=== PATIENT | male | born 1935 | race Caucasian/White ===

== ENCOUNTER 2017-07-21 14:40 | Outpatient (CLI) | payer MEDICARE ==
--- NOTE | 2017-07-21 15:23 | RAD ---
PA AND LATERAL CHEST: Date: 07/21/17 INDICATION: History of wheezing. COMPARISON: Prior exam dated 01/01/15. FINDINGS: Chronic lung changes and mild cardiomegaly are stable. 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 Aortic valvular p rosthesis is unchanged in position. No acute air space opacity, pleural effusion, or pneumothorax is evident. No acute osseous abnormality is noted. Multilevel spondylosis is similar appearing. Mild wed ge compression abnormality of mid thoracic spine is stable. IMPRESSION: No acute abnormality. Stable exam as above. POS: ADALID
[2017-07-21 15:27] LABS: Hemoglobin 14.3 g/dL (14.0-18.0); Mean Corpuscular HGB CONC 31.5 g/dL (32.0-36.0); Mean Corpuscular Hemoglobin 28.6 pg (27.0-31.0); Mean Corpuscular Volume 90.6 fl (80.0-94.0); Platelet Count 274 thou/uL (130-400); RBC Distribution Width 12.9 % (11.5-14.5); White Blood Cell (WBC) Count 10.5 thou/uL (4.8-10.8)
[2017-07-21 15:36] LABS: ALT (SGPT) 32 U/L (8-55); AST (SGOT) 23 U/L (5-34); Albumin 3.7 g/dL (3.4-4.8); Alkaline Phosphatase 170 U/L (40-150); Anion Gap 13 mmol/L (10-20); BUN (Urea Nitrogen) 18 mg/dL (8.4-25.7); Bilirubin, Total 0.8 mg/dL (0.2-1.2); Calc. Creatinine Clearance 0 mL/min (70-130); Calcium 9.4 mg/dL (7.8-10.44); Carbon Dioxide 29 mmol/L (23-31); Chloride 102 mmol/L (98-107); Estimated GFR-MDRD 65; Globulin 3.2 g/dL (2.4-3.5); Glucose 132 mg/dL (83-110); Potassium 4.5 mmol/L (3.5-5.1); Protein, Total 6.9 g/dL (5.8-8.1); Sodium 139 mmol/L (136-145)
[2017-07-21 15:43] LABS: Bilirubin Negative (Negative); Blood, Urine Trace (Negative); Clarity Clear (Clear); Glucose, Urine (Dipstick) Negative (Negative); Leukocyte Negative (Negative); Nitrite Negative (Negative); Protein, Urine (Dipstick) Negative (Neg-Trace); Specific Gravity, Urine 1.025 (1.005-1.030); Urobilinogen 0.2 mg/dL (0.2-1.0); pH, Urine 5.5 (5.0-9.0)
[2017-07-21 16:02] LABS: Band 1 % (5-11); Eosinophils 4 % (0-10); Lymphocytes 24 % (21-51); MDiff Complete? YES; Monocytes 6 % (0-10); Neutrophil 65 % (42-75); PLT Morphology Comment Appears Adequate
[2017-07-21 16:34] LABS: Bacteria/HPF Rare-Few HPF (None Seen); RBC/HPF 0-3 HPF (0-3); Squamous Epithelial 0-3 HPF (0-3); WBC/HPF 0-3 HPF (0-3)
[2017-07-21 20:30] LABS: LDH 172 U/L (125-220)
== END 2017-07-21 14:41 | disposition home or self-care (01) ==
LOC: MADLAB 14:40
PROVIDERS: ATTEND Family Medicine
DX: R06.02 Shortness of breath (principal); C95.01 Acute leukemia of unspecified cell type, in remission; R29.6 Repeated falls; R09.02 Hypoxemia; C91.02 Acute lymphoblastic leukemia, in relapse; R41.0 Disorientation, unspecified
CPT/HCPCS: 36415; 71046; 80053; 81003; 81015; 83615; 83880; 85007; 85027; 85060; 85652; 87086